=== PATIENT | female | born 1935 | race Caucasian/White ===

== ENCOUNTER 2019-07-31 04:03 | Observation (INO) | payer MEDICARE, BC ==
[~2019-07-31] VITALS: Ht 152.4 cm; Wt 56.0 kg
[~2019-07-31 04:03] MED LIST: CARDIZEM30 MG PO; CARDURA1 MG; CITRACAL + D E1 EACH PO; FLECAINIDE ACE100 MG PO; MULTIPLE VITAMI1 TA1 PO; VITAMIN C PO; XANAX1 MG PO; ZANTAC150 MG PO; [UNRECOGNIZED DRUG - OTHER] PO
[2019-07-31] MEDS ORDERED: ALBUTEROL SULF8.5 GM INH (04:14)
[2019-07-31] MEDS ORDERED: NORVASC2.5 MG PO (04:15)
[2019-07-31] MEDS ORDERED: LANOXIN125 MCG PO (04:15)
[2019-07-31] MEDS ORDERED: FLUTICASONE PRO16 GM NASAL (04:16)
[2019-07-31 04:31] LABS: BASOPHILS 0.2 % (0-2); EOSINOPHILS 1.6 % (0-7); HEMATOCRIT 39.2 % (36.0-48.0); HEMOGLOBIN 12.7 g/dL (12-16); IMMATURE GRANULOCYTES 0.2 % (0-5); LYMPHOCYTES 11.2 % (15-50); MCH 33.3 pg (26.0-34.0); MCHC 32.4 g/dL (31.0-37.0); MCV 102.9 fL (80.0-100.0); MEAN PLATELET VOLUME 10.3 fL (7.4-10.4); MONOCYTES 10.3 % (2-11); NEUTROPHILS 76.5 % (40-80); PLATELET COUNT 222 10x3/uL (130-400); RBC 3.81 10x6/uL (4.00-5.40); RDW 13.6 % (11.5-14.5); WBC 11.7 10x3/uL (4.8-10.8)
[2019-07-31 04:42] LABS: CALC OSMOLALITY 283 mosm/kg (275-300); CALCIUM 9.7 mg/dL (8.5-10.1); CARBON DIOXIDE 30.8 mmol/L (21.0-32.0); CHLORIDE - SERUM 104 mmol/L (98-107); CREATININE - SERUM 1.1 mg/dL (0.6-1.3); POTASSIUM - SERUM 4.3 mmol/L (3.5-5.1); SODIUM 141 mmol/L (136-145); UREA NITROGEN 21 mg/dL (7-18); eGFR NON AFRICAN AMERICAN 50 mL/min (90-120)
[2019-07-31 04:43] LABS: GLUCOSE 106 mg/dL (74-106)
[2019-07-31 04:44] LABS: APTT 27.3 SECONDS (22.8-39.4); INR 0.97 (0.85-1.17); PROTIME 12.4 SECONDS (11.6-15.0)
[2019-07-31 04:59] LABS: ALBUMIN 3.3 g/dL (3.4-5.0); ALKALINE PHOSPHATASE 106 U/L (46-116); ALT (SGPT) 26 U/L (10-68); BILIRUBIN - TOTAL 0.55 mg/dL (0.2-1.3); CKMB 1.4 U/L (0.0-3.6); CREATINE KINASE 46 UL (21-215); PROTEIN - SERUM 6.8 g/dL (6.4-8.2)
[2019-07-31 05:00] VITALS: BP 146/49
[2019-07-31 05:07] LABS: TROPONIN-I < 0.017 ng/mL (0.000-0.060)
[2019-07-31] MEDS ORDERED: ACETAMINOPHEN325 MG PO (05:56)
[2019-07-31] MEDS ORDERED: CARDIZEM30 MG PO (05:58)
[2019-07-31 06:17] VITALS: BP 165/42; BMI 24.1
--- NOTE | 2019-07-31 06:27 | NUR ---
RECIEVED REPORT FROM JILLIAN SZYMANSKI IN ER AT 0515. ARRIVED TO FLOOR ON STRETCHER. TRANSFERED SELF TO BED. ALERT AND ORIENTED X4. UP AD LATRICE TO B/R. IV TO LEFT AC SL.. ASSESSMENT COMPLETED. NPO AT THIS TIME D/T CARDIOLOGY CONSULT. DENIES ANY NEEDS AT THIS TIME.
--- NOTE | 2019-07-31 07:15 | NUR ---
RECEIVED PT IN BED EYES CLOSED RESP UNLABORED SKIN W/D NAD NOTED
[2019-07-31 08:06] VITALS: BP 162/65
[2019-07-31 11:40] VITALS: Ht 152.4 cm; Wt 56.0 kg
[2019-07-31 11:43] VITALS: BP 154/49
[2019-07-31 15:58] VITALS: BP 99/37
--- NOTE | 2019-07-31 19:09 | NUR ---
RECIEVED BEDSIDE SHIFT REPORT. ALET AND ORIENTED X4. UP AD LATRICE TO B/R. IV TO LEFT AC SL.. TELEMETRY IN PLACE. BEAVER AND MUST FACE HER WHEN SPEAKING. DENIES ANY NEEDS AT THIS TIME.
[2019-07-31 20:00] VITALS: BP 101/48
[2019-08-01] VITALS: BP 99/46
[2019-08-01 04:00] VITALS: BP 102/43
[2019-08-01 04:47] LABS: BASOPHILS 0.2 % (0-2); EOSINOPHILS 0.2 % (0-7); HEMATOCRIT 33.8 % (36.0-48.0); HEMOGLOBIN 10.9 g/dL (12-16); IMMATURE GRANULOCYTES 0.2 % (0-5); LYMPHOCYTES 11.6 % (15-50); MCHC 32.2 g/dL (31.0-37.0); MCV 102.4 fL (80.0-100.0); MEAN PLATELET VOLUME 10.5 fL (7.4-10.4); MONOCYTES 16.1 % (2-11); NEUTROPHILS 71.7 % (40-80); RDW 13.7 % (11.5-14.5); WBC 10.5 10x3/uL (4.8-10.8)
[2019-08-01 04:51] LABS: PLATELET COUNT 173 10x3/uL (130-400)
[2019-08-01 05:05] LABS: ANION GAP 10.1 mmol/L (8-16); CALCIUM 8.2 mg/dL (8.5-10.1); CARBON DIOXIDE 27.9 mmol/L (21.0-32.0)
[2019-08-01 05:06] LABS: CREATININE - SERUM 1.5 mg/dL (0.6-1.3)
--- NOTE | 2019-08-01 09:27 | NUR ---
TELEMETRY CAF. UP AMBULATING WITH PT ASSIST. GAIT STEADY. WILL CONT. PLAN OF CARE.
--- NOTE | 2019-08-01 10:09 | NUR ---
URINE SPECIMEN COLLECTED AND TAKEN TO LAB. WILL MONITOR.
[2019-08-01 10:12] VITALS: BP 99/36
[2019-08-01 10:19] LABS: APPEARANCE CLEAR (CLEAR); BILIRUBIN NEGATIVE (NEGATIVE); COLOR YELLOW (YELLOW); GLUCOSE NEGATIVE (NEGATIVE); KETONE NEGATIVE (NEGATIVE); NITRITE NEGATIVE (NEGATIVE); PROTEIN NEGATIVE (NEGATIVE); SPECIFIC GRAVITY 1.015 (1.005-1.020); UROBILINOGEN NORMAL (NORMAL)
--- NOTE | 2019-08-01 11:51 | NUR ---
IV AND TELEMETRY DCD. DC PLANS GIVEN. UNDERSTANDING VOICED. ESCORTED TO CAR BY W/C.
--- NOTE | 2019-08-02 09:06 | MORECARE ---
CASE MANAGEMENT DISCHARGE SUMMARY PATIENT: KENYON KENNEY UNIT: [id number] ADM DATE: 07/31/19 AGE: 83 : 34 SEX: F ROOM/BED: D.8995 AUTHOR: OMARI ROBERT PHYSICIAN: REFERRING PHYSICIAN: PORFIRIO NWE MD DATE OF SERVICE: 08/02/19 Discharge Plan Patient Name: [facility]ENYON KENNEY [facility] 1935 Planned Disposition: Home Anticipated Discharge Date: 08/01/19 Discharge Date: 08/01/2019 Expected LOS: 1 Initial Reviewer: [email or web address] Initial Review Date: 08/02/2019 Generated: 08/02/19 10:05 am Coverage Notice Reviewer: [email or web address] Yudith Stack Notice Issued Date-Time: 07/31/2019 14:37 Notice Type: Medicare Outpatient Observation Notice Notice Delivered To: Patient Relationship to Patient: Medical Doctor Md/Medical Director Name: Delivery Method: HAND - Hand Delivered Scarlett Days: Prior Verbal Notification: Recipient Understood Notice: Recipient Signature: Med Rec Note Co-signed by Attending: Coverage Notice Comment: Patient Name: KENYON KENNEY Page [phone] at 0906 All edits/amendments must be made on the electronic document DICTATION DATE: 08/02/19904 FAGOT MAKER: VANNA 08/02/19904 RPT#: [id number] DC DATE:08/01/19 STATUS: DIS IN [facility] [address] [place] [address] END OF REPORT
== END 2019-08-01 11:52 | disposition home or self-care (01) ==
LOC: D.ER 04:03 → OBSVTIME 04:42 → D.M2 04:42
PROVIDERS: Family Medicine; ADMIT Internal Medicine Nephrology; ATTEND Internal Medicine Nephrology
DX: R07.81 Pleurodynia (principal); R91.1 Solitary pulmonary nodule; N17.9 Acute kidney failure, unspecified; I10 Essential (primary) hypertension; K21.9 Gastro-esophageal reflux disease without esophagitis; I48.0 Paroxysmal atrial fibrillation; I34.0 Nonrheumatic mitral (valve) insufficiency

== ENCOUNTER 2019-09-01 10:51 | Outpatient (CLI) | payer MEDICARE, BC ==
[~2019-09-01] VITALS: Ht 152.4 cm; Wt 50.0 kg
--- NOTE | ~2019-09-01 | HEMODYNAMI ---
PATIENT:KENYON KENNEY MEDICAL RECORD: [id number] : 33 LOCATION:[facility] ADMISSION DATE: 09/01/19 Generatedon:09/01/201913:46 Patient name: KENYON KENNEY Patient #: [id number] SSN: [id number] : 1935 Date of study: 09/01/2019 Page: Of Hemodynamic Procedure Report Patient Data Patient Demographics Procedure consent was obtained First Name: KENYON Gender: Female Last Name: PABLITO : 1935 Middle Initial: A Age: 83 year(s) Patient #: [id number] Race: SSN: [id number] Additional ID: [id number] Contact details Address: [address] [place] [address] State: [place] City: [place] Zip code: [address] Past Medical History Allergies Allergen Reaction Date Comments Reported Other 10/11/2015 Betapace, Bystolic, Cephalexin, Coreg, allergy Metronidazole Other 09/01/2019 BETAPACE/BYSTOLIC/CEPHALEXIN/COREG/METRONIDAZOLE allergy Admission Admission Data Admission Date: 09/01/2019 Admission Time: 10:51 Arrival Date: 09/01/2019 Arrival Time: 0:00 Admit Source: Other Insurance Payor: Medicare [facility] #: [id number] Height (in.): 23.23 Height (cm.): 59 Lab Results Lab Result Date: 09/01/2019 Lab Result Time: 0:00 CBC Name Units Result Min Max Hematocrit % 39.4 -*(----)-- 42 54 Hemoglobin g/dl 12.8 -*(----)-- 13.5 17.5 Procedure Procedure Types Cath Procedure Diagnostic Procedure Cardioversion External Procedure Description Procedure Date Procedure Date: 09/01/2019 Procedure Start Time: 13:37 Procedure End Time: 13:44 Procedure Staff Name Function Jeronimo Jackson MD Performing Physician Ely Santillan RT Monitor Sebastian Parks RN Nurse Luz Caballero RT Scrub Elder Britton RT Scrub Lam Wahl GRINDING ROOM INSPECTOR Additional personnel Procedure Data Procedure Complications No complications Procedure Medications Medication Administration Route Dosage 0.9% NaCl I.V. 100 ml/hr Oxygen etCO2 Nasal cannula 5 l/min Refer to Anesthesia Notes for Sedation Medications Hemodynamics Rest HGB: 12.8 (g/dl) Heart Rate: 89 (bpm) Snapshots Pre Cath Intra NCS Post Cath Vital Signs Time Heart Resp SPO2 etCO2 NIBP (mmHg) Rhythm Pain Sedation Rate (ipm) (%) (mmHg) Status Level (bpm) 13:34:32 87 19 98 29.6 92/80(84) NSR 0 (11) 10(A) , No pain 13:36:00 90 17 100 25.1 163/84(116) NSR 0 (11) 10(A) , No pain 13:40:24 62 15 99 0 149/59(107) NSR 0 (11) 10(A) , No pain 13:41:34 64 13 100 0 138/55(103) NSR 0 (11) 10(A) , No pain Medications Time Medication Route Dose Verified Delivered Reason Notes Effective ness by by 13:34:58 0.9% NaCl I.V. 100 Sebastian Sebastian Per ml/hr Kasey Parks physician RN RN 13:35:09 Oxygen etCO2 5 Sebastian Sebastian for low Nasal l/min Kasey Parks 02 sats cannula RN RN 13:37:10 Refer to Sebastian Sebastian Anesthesia Kasey Parks Notes for RN RN Sedation Medications Procedure Log Time Note 13:17:03 Diagnostic Cath Status : Elective 13:18:20 Procedure Status Cardioversion. 13:18:25 Sebastian Parks RN sent for patient. Start room use. 13:18:28 Time tracking: Regular hours (M-F 7:00 - 5:00) 13:18:36 Plan of Care:Hemodynamics will remain stable., Cardiac rhythm will remain stable., Comfort level will be maintained., Respiratory function will remain adequate., Patient/ family verbilizes understanding of procedure., Procedure tolerated without complication., Recovers from procedure without complications.. 13:20:09 Patient allergic to Other allergyBETAPACE/BYSTOLIC/CEPHALEXIN/COREG/METRONIDAZOLE 13:22:19 Lab Result : Hematocrit 39.4 % 13:22:19 Lab Result : Hemoglobin 12.8 g/dl 13:22:37 Arrival Date: 09/01/2019 12:00:00 AM 13:22:40 Admit Source: Other 13:24:16 Insurance Payor : Medicare 13:24:39 Patient Height : 23.23 inches 13:29:51 Patient arrived from Pre/Post Procedure Room to CCL 1. Patient remains on bed/stretcher for procedure. 13:29:57 Signed procedure consent form obtained from patient. 13:29:58 Warm blankets applied, and gilma hugger turned on for patient comfort. 13:29:59 Correct patient and procedure confirmed by team. 13:30:01 ECG and BP/O2 sat monitors applied to patient. 13:33:22 Vital chart was started 13:33:23 Baseline sample Acquired. 13:33:31 Rhythm: atrial fibrillation 13:33:33 Full Disclosure recording started 13:33:34 - 13:33:40 H&P Date Dictated: 09/01/2019 H&P Addendum completed by physician on da y of procedure. (MUST COMPLETE FOR ALL OUTPATIENTS), New H&P dictated by physician.. 13:33:45 Pre-procedure instructions explained to patient. 13:33:46 Pre-op teaching completed and patient verbalized understanding. 13:33:49 Family in patients room. 13:34:05 Was the patient premedicated? Yes 13:34:07 Is patient on blood thinner?Yes 13:34:09 Quick Combo opened to sterile field. 13:34:13 ACC The patient was administered the following blood thiners within the last 24 hours: Rimmarelsandra 13:34:15 ----Pre-sedation anethsthesia assessment.---- 13:34:19 Previous problem with sedation/anesthesia? No ? 13:34:22 Snore? No 13:34:25 Sleep apnea? No 13:34:28 Deviated septum? No 13:34:29 Opens mouth fully? Yes 13:34:31 Sticks out tongue? Yes 13:34:34 Airway obstruction? No ? 13:34:40 Dentures? No ? 13:34:58 0.9% NaCl 100 ml/hr I.V. was administered by Sebastian Parks RN; Per physician; Verbal order read back and verified. 13:35:00 IV patent on arrival in right forearm with 0.9% NaCl at O. 13:35:09 Oxygen 5 l/min etCO2 Nasal cannula was administered by Sebastian Parks RN; for low 02 sats; Verbal order read back and verified. 13:35:10 Lab results completed and on chart. 13:35:13 Physician arrived 13:35:15 --------ALL STOP TIME OUT------ 13:35:16 Final Timeout: patient, procedure, and site verified with staff and physician. All members of the team are in agreement. 13:35:30 Physical assessment completed. ASA score P 3 - A patient with severe systemic disease as per Jeronimo Jackson MD. 13:35:44 Sedation plan: TIVA Medication:Propofol 13:37:10 Refer to Anesthesia Notes for Sedation Medications was administered by Sebastian Parks RN; ; Verbal order read back and verified. 13:37:47 Procedure started. 13:37:49 ------Cardioversion------ 13:37:54 Lam Wahl CRNA present and monitoring patient for TIVA. 13:37:58 Quick combo pads placed on patients chest and back. 13:38:03 Defibrillator synced and charged to 50 Joules. 13:38:05 Shock delivered. 13:38:12 Patient cardioverted to sinus rhythm . 13:38:26 Procedure ended.(Physican Out) 13:41:39 Post-procedure physical assessment completed. ASA score P 3 - A patient with severe systemic disease as per Jeronimo Jackson MD. 13:41:44 Post procedure rhythm: sinus rhythm 13:41:49 Post procedure instruction explained to patient.Patient verbalizes understanding. 13:41:51 Patient needs reinforcement of post procedure teaching. 13:42:02 Procedure and supply charges have been captured, reviewed, submitted an d are correct. 13:44:18 Procedure Complication : No complications 13:44:22 Vital chart was stopped 13:44:29 Operative report dictated upon procedure completion. 13:44:30 See physician's report for complete and final results. 13:44:32 Report given to Pre/Post Procedure Room. 13:44:36 Patient transfered to Pre/Post Procedure Room with Stretcher. 13:44:39 Procedure ended. 13:44:39 Full Disclosure recording stopped 13:44:42 End room use (Document Last) 13:44:42 End room use (Document Last) Device Usage Item Manufacture Quantity Catalog Hospital Part Current Minimal Lot# / Name Number Charge Number Stock Stock Kadei va# Code [employer] [id number] 5 Combo Signature Audit [place] Stage Time Signature Unsigned Intra-Procedure 09/01/2019 Ely 1:45:13 PM Jacque RT(R) (CV) Intra-Procedure 09/01/2019 Sebastian 1:45:37 PM Kasey SZYMANSKI Intra-Procedure 09/01/2019 Jeronimo Jackson MD 1:46:21 PM [facility] [address] [place] [address]
[~2019-09-01 10:51] MED LIST changes: +ACETAMINOPHEN325 MG PO; +ALBUTEROL SULF8.5 GM INH; +FLUTICASONE PRO16 GM NASAL; +LANOXIN125 MCG PO; +NORVASC2.5 MG PO
[2019-09-01] MEDS ORDERED: XARELTO20 MG PO (11:10)
[2019-09-01] MEDS ORDERED: LASIX20 MG PO (11:11)
--- NOTE | 2019-09-01 12:12 | NUR ---
1115 PT REC TO ROOM, EKG TO ASSESS HEART RHYTHM DONE. REGULAR RHYTHM W P WAVES, EKG INTERP IS NSR, RATE 87. 1118 KODY KINGSTON RN SENT MESSAGE TO DR ROBERT RE HEART RHYTHM, HE SENT MESSAGE THAT HE WILL COME ASSESS PT PRIOR TO HIS CASES STARTING THIS AFTERNOON. PT INFORMED. FRIEND AT BEDSIDE.
--- NOTE | 2019-09-01 12:46 | NUR ---
1235 DR ROBERT HERE, REQ SECOND EKG. DONE. DETERMINED RHYTHM IS 2:1 FLUTTER. WILL PREP PT FOR CARDIOVERSION.
[2019-09-01 13:20] VITALS: BP 155/78; Ht 152.4 cm; Wt 50.0 kg
[2019-09-01 13:20] LABS: BASOPHILS 0.3 % (0-2); EOSINOPHILS 1.9 % (0-7); HEMATOCRIT 39.4 % (36.0-48.0); HEMOGLOBIN 12.8 g/dL (12-16); IMMATURE GRANULOCYTES 0.1 % (0-5); LYMPHOCYTES 22.4 % (15-50); MCH 32.2 pg (26.0-34.0); MCHC 32.5 g/dL (31.0-37.0); MONOCYTES 8.9 % (2-11); NEUTROPHILS 66.4 % (40-80); PLATELET COUNT 248 10x3/uL (130-400); RBC 3.98 10x6/uL (4.00-5.40); RDW 13.1 % (11.5-14.5); WBC 6.8 10x3/uL (4.8-10.8)
[2019-09-01 13:32] LABS: ANION GAP 12.6 mmol/L (8-16); CALCIUM 9.6 mg/dL (8.5-10.1); CARBON DIOXIDE 30.5 mmol/L (21.0-32.0); POTASSIUM - SERUM 4.1 mmol/L (3.5-5.1)
--- NOTE | 2019-09-01 13:52 | NUR ---
REC TO ROOM VIA STRETCHER. MONITORING INITIATED. ALERT, ORIENTED.POST PROCEDURE EKG NSR, RATE 67. KYLE SIPS OF WATER, DECLINES FOOD.
[2019-09-01 13:58] LABS: INR 1.55 (0.85-1.17)
--- NOTE | 2019-09-01 14:16 | NUR ---
ALERT, ORIENTED, NO C/O PAIN, FRIEND AT BEDSIDE VISITING. VSS. HR 68, BP 151/64.
--- NOTE | 2019-09-01 14:30 | NUR ---
NO COMPLAINTS. NSR, 71. NIBP 151/64. DENIES NEEDS.
--- NOTE | 2019-09-01 14:45 | NUR ---
MONITORING DISCONTINUED, IV DC WITH TIP INTACT. PT DRESSED INDEPENDENTLY. DC INSTRUCTIONS AND APPT REVIEWED. PT TO PRIVATE CAR DRIVEN BY FRIEND VIA WHEELCHAIR.
== END 2019-09-01 14:45 | disposition home or self-care (01) ==
LOC: D.CATH 10:51
PROVIDERS: ATTEND Internal Medicine Cardiovascular Disease
DX: I48.92 Unspecified atrial flutter (principal); R06.00 Dyspnea, unspecified; I48.0 Paroxysmal atrial fibrillation; I10 Essential (primary) hypertension; I34.0 Nonrheumatic mitral (valve) insufficiency

== ENCOUNTER 2019-09-11 00:49 | Observation (INO) | payer MEDICARE, BC ==
[~2019-09-11] VITALS: Ht 152.4 cm; Wt 50.5 kg
--- NOTE | ~2019-09-11 | CN ---
PATIENT NAME:KENYON RANDLE MEDICAL RECORD: [id number] : 33 LOCATION:. D.2120 ADMIT DATE: 09/11/19 ACCOUNT: [id number] CONSULTING PHYSICIAN: FELIPE ADHIKARI MD REFERRING PHYSICIAN: PORFIRIO NEW MD DATE OF CONSULTATION: 09/11/2019 CARDIOLOGY CONSULTATION ADMITTING DIAGNOSES: 1. Chest pain, atypical. 2. Atrial fibrillation, chronic. 3. Tachycardia. 4. Palpitations. 5. Chronic obstructive pulmonary disease. 6. Gastroesophageal reflux disease. 7. Valvular heart disease, mitral regurgitation. HISTORY OF PRESENT ILLNESS: Mrs. Randle presents with chest pain and palpitations. She has chronic atrial fibrillation. DC cardioversion was attempted approximately 2 weeks ago; however, this failed. She is back in atrial fibrillation. She has longstanding atrial fibrillation, has been on flecainide for years. She felt palpitations. Her current rate control medications are digoxin 0.125 every day with normal renal function as well as Cardizem 30 mg b.i.d., her systolic blood pressure is in the 130-140 range. Her heart rates in the 110 range with atrial fibrillation, atrial flutter. PHYSICAL EXAMINATION: CONSTITUTIONAL/GENERAL APPEARANCE: Well nourished, well developed, appears stated age. EYES: Lids and conjunctivae noninjected. No discharge. No pallor. ENT: Lips within normal limit. No cyanosis. No pallor. NECK: Carotid arteries, bilateral normal upstroke. No bruits. No thrills. No jugular venous pressure or distention. CERVICAL LYMPH NODES: Nontender. Nonenlarged. THYROID: Not enlarged. No nodules. CARDIOVASCULAR: Irregularly irregular, tachycardic with atrial fibrillation. RESPIRATORY: Respiratory effort, unlabored. Normal curvature. No thoracic deformity. No chest wall tenderness. Percussion, resonant. Auscultation, clear. No wheezes, no rales, no rhonchi. ABDOMEN: Soft, nondistended, nontender. No abdominal pain, no vomiting and normal appetite. MUSCULOSKELETAL: No joint tenderness, normal gait, normal tone. SKIN: Warm and dry. OVERALL IMPRESSION: Atrial fibrillation. At this time, would center medical management on rate control. She is on Norvasc and diltiazem. We will discontinue the Norvasc, increase the diltiazem to 180 mg every day, increase the digoxin to 0.25 mg every day. Hopefully, this will give better rate control and symptomatology control. She did undergo cardiac catheterization in the past, this was normal. Her chest pain is nonischemic in nature. TRANSINT:[id number] Voice Confirmation ID: [id number] DOCUMENT ID: [id number] CONSULT REPORT [id number] KENYON RANDLE JEFFREY MD CC: [id number] DICTATION DATE: 09/11/19 122 DONKEY ENGINE FIRER/FIREMAN: 09/11/19 1250 ADM IN [place] [id number] [place] [id number]
--- NOTE | ~2019-09-11 | EC ---
PATIENT:KENYON KENNEY DATE OF SERVICE: 09/11/19 SEX: F MEDICAL RECORD: [id number] DATE OF : [birth year] LOCATION:D.M2 D.212 AGE OF PATIENT: 84 ADMISSION DATE: 09/11/19 REFERRING PHYSICIAN: INTERPRETING PHYSICIAN: FELIPE PRYOR MD ECHOCARDIOGRAM REPORT ECHO CHARGES 4 ECHO COMPLETE Date: 09/11/19 CLINICAL DIAGNOSIS: ATYPICAL CP; AFIB; HX: MVP ECHOCARDIOGRAPHIC MEASUREMENTS (adult normal given) AC root (d.<3.7cm) 2.1 cm LV Septum d (<1.2 cm> 1.2 cm Valve Excursion 1.5 cm LV Septum (systole) 1.6 cm Left Atria (s.<4.0cm> 3.5 cm LVPW d(<1.2cm) 1.0 cm RV (d.<2.3cm) 2.3 cm LVPW (sytole) 1.4 cm LV diastole(<5.6CM) 3.2 cm MV E-F(>70mm/sec) cm LV systole 2.1 cm LVOT Diameter 2.0 cm MV exc.(>10mm) cm Est.ejection fraction (50-75%) % DOPPLER: LVIT cm/sec A 38 cm/sec E 112 cm/sec LA cm/sec RVSP 22.5 mmHg LVOT 95 cm/sec AOP1/2T m/s Asc. Ao 157 cm/sec RVOT 69 cm/sec RA cm/sec PA 86 cm/sec AV Gradient Peak 9.8 mmHg AV Mean 5.1 mmHg AV Area 2.1 cm MV Gradient Peak 8.6 mmHg MV Mean 3.1 mmHg MV Area cm COMMENTS: Home Health Clinician: Gadiel MARCUS Conditioner Tender: 1 Dr. Pryor TAPE# PACS Pericardial Effusion Y DATE OF SERVICE: 09/11/2019 FINDINGS: 1. Left ventricular chamber size is within normal limits. Left ventricular systolic function is normal. Overall ejection fraction estimated at 55%. 2. Left atrium, right atrium, and right ventricle chamber sizes are within normal limits. 3. Valvular structures have normal structure and motion. 4. Doppler interrogation reveals no significant valvular insufficiency or stenosis. ECHOCARDIOGRAM REPORT [id number] KENYON KENNEY 5. No evidence of pericardial effusion or left ventricular thrombus. TRANSINT:[id number] Voice Confirmation ID: [id number] DOCUMENT ID: [id number] FELIPE PRYOR MD CC: [id number] DICTATION DATE: 09/12/19 1224 HOSPITAL HOUSEKEEPER: 09/12/19 1532 DIS IN 09/12/19 [place] [id number] [place] [id number]
[~2019-09-11 00:49] MED LIST changes: +LASIX20 MG PO; +XARELTO20 MG PO
[2019-09-11] MEDS ORDERED: LINZESS72 MCG PO (00:58)
[2019-09-11 01:18] LABS: BASOPHILS 0.2 % (0-2); EOSINOPHILS 1.8 % (0-7); HEMOGLOBIN 11.9 g/dL (12-16); IMMATURE GRANULOCYTES 0.3 % (0-5); LYMPHOCYTES 10.8 % (15-50); MCH 31.6 pg (26.0-34.0); MCHC 32.2 g/dL (31.0-37.0); MCV 98.1 fL (80.0-100.0); MEAN PLATELET VOLUME 9.7 fL (7.4-10.4); NEUTROPHILS 75.9 % (40-80); PLATELET COUNT 242 10x3/uL (130-400); RBC 3.77 10x6/uL (4.00-5.40); RDW 13.1 % (11.5-14.5); WBC 11.3 10x3/uL (4.8-10.8)
[2019-09-11 01:28] LABS: CALC OSMOLALITY 285 mosm/kg (275-300); CALCIUM 9.1 mg/dL (8.5-10.1); CARBON DIOXIDE 29.6 mmol/L (21.0-32.0); CHLORIDE - SERUM 102 mmol/L (98-107); GLUCOSE 130 mg/dL (74-106); POTASSIUM - SERUM 3.9 mmol/L (3.5-5.1); SODIUM 140 mmol/L (136-145); UREA NITROGEN 26 mg/dL (7-18); eGFR NON AFRICAN AMERICAN 56 mL/min (90-120)
[2019-09-11 01:35] LABS: APTT 37.6 SECONDS (22.8-39.4); INR 1.4 (0.85-1.17); PROTIME 16.6 SECONDS (11.6-15.0)
[2019-09-11 01:36] LABS: D-DIMER-QUANTITATIVE 0.66 ug/mLFEU (0.20-0.54)
[2019-09-11 01:42] LABS: ALBUMIN 3.1 g/dL (3.4-5.0); ALKALINE PHOSPHATASE 118 U/L (46-116); ALT (SGPT) 19 U/L (10-68); BILIRUBIN - TOTAL 0.34 mg/dL (0.2-1.3); CKMB 1.8 U/L (0.0-3.6); CREATINE KINASE 40 UL (21-215); DIGOXIN 1.56 ng/mL (0.90-2.00); PRO BNP 1924 pg/mL (0-450); PROTEIN - SERUM 6.7 g/dL (6.4-8.2); TROPONIN-I < 0.017 ng/mL (0.000-0.060)
[2019-09-11 03:57] VITALS: BP 122/54; BMI 21.7
--- NOTE | 2019-09-11 04:45 | NUR ---
ADMIT TO ROOM 2120 @ 0336 FROM ER VIA STRETCHER. ALERT/ORIENTED/MILD PAIUTE-SHOSHONE. TELEMETRY INITIATED. CAF/90 PER MONITORS. ADMISSION HISTORY AND ASSESSMENT COMPLETED. HOME MEDS REVIEWED AND UPDATED. PLAN OF CARE INITIATED.
[2019-09-11] MEDS ORDERED: XANAX0.5 MG PO (05:07)
[2019-09-11] MEDS ORDERED: OMEPRAZOLE20 M1 PO (05:09)
--- NOTE | 2019-09-11 06:40 | NUR ---
PT RESTING IN BED. HAS BEEN ASSISTED UP X 1 TO VOID/HAVE LOOSE BM IN BATHROOM. IVF NS @ 75ML/HR INFUSING. STILL REPORTS PAIN TO LEFT CHEST WITH INSPIRATION/EXPIRATION. CPOC.
--- NOTE | 2019-09-11 07:10 | NUR ---
REPORT RECEVED FROM TRANSCRIPTION AND PATIENT CARE ASSUMED. PATIENT LAYING IN BED ON BACK AWAKE, ALERT AND ORIENTED X 2. PATIENT DENIES ANY NEEDS OR PAIN. PATIENT IS NPO AWAITING CARDIOLOGY CONSULT. WILL CONTINUE WITH PLAN OF CARE. SR UPX 2 BED IN LOW POSITION AND CALL LIGHT IN REACH.
[2019-09-11 07:38] LABS: CREATINE KINASE 27 UL (21-215)
[2019-09-11 07:39] LABS: TROPONIN-I < 0.017 ng/mL (0.000-0.060)
[2019-09-11 08:06] VITALS: BP 119/68
[2019-09-11 11:02] VITALS: Ht 152.4 cm; Wt 50.5 kg
--- NOTE | 2019-09-11 11:10 | NUR ---
PATIENT IS STABLE AND VSS, PATIENT DENIES ANY NEEDS OR PAIN. PATIENT TO CT VIA WC AND ACCOMPANIED BY CT PERSONNEL.
[2019-09-11 11:33] VITALS: BP 147/64
[2019-09-11 14:20] LABS: CKMB 0.7 U/L (0.0-3.6); CREATINE KINASE 25 UL (21-215); TROPONIN-I < 0.017 ng/mL (0.000-0.060)
--- NOTE | 2019-09-11 15:28 | NUR ---
PATIENT UP TO BR. PATIENT VOIDED AND URINE SPECIMEN COLLECTED. PATIENT BACK TO BED. PATIENT IS STABLE AND VSS. PATIENT DENIES ANY NEEDS OR PAIN. WILL CONTINUE TO MONITOR. SR UP X 2 BED IN LOW POSITION AND CALL LIGHT IN REACH.
[2019-09-11 15:31] VITALS: BP 127/56
[2019-09-11 16:02] LABS: APPEARANCE CLEAR (CLEAR); BILIRUBIN NEGATIVE (NEGATIVE); COLOR YELLOW (YELLOW); GLUCOSE NEGATIVE (NEGATIVE); KETONE NEGATIVE (NEGATIVE); NITRITE NEGATIVE (NEGATIVE); PROTEIN NEGATIVE (NEGATIVE); UROBILINOGEN NORMAL (NORMAL)
--- NOTE | 2019-09-11 18:40 | NUR ---
PATIENT RESTING COMFORTABLY IN BED VISITNG WITH SON. PATIENT DENIES ANY NEEDS OR PAIN. PATIENT IS STABLE AND VSS. WILL CONTINUE TO MONITOR. SR UP X 2 BED IN LOW POSITION AND CALL LIGHT IN REACH.
--- NOTE | 2019-09-11 20:22 | NUR ---
REPORT AND INITIAL ROUNDS COMPLETED. PT RESTING IN BED. ALERT/ORIENTED. IV TO RIGHT A/C WITH NS @ 75ML/HR INFUSING. CAF PER TELEMETRY. REPORTS NO PAIN TO CHEST AREA AT THIS TIME. CALL LIGHT IN REACH. VERY PLEASANT.
[2019-09-11 20:30] VITALS: BP 125/58
--- NOTE | 2019-09-11 21:41 | NUR ---
BEDTIME MEDS GIVEN. REQUESTED XANAX FOR SLEEP PROVIDED. ASSISTED UP TO BATHROOM BATHROOM. PT AMBULATES STEADILY WITH STAFF PRESENT IN ROOM. PT PERFORMED ORAL CARE. BACK TO BED. CALL LIGHT IN REACH.
[2019-09-12 00:26] VITALS: BP 117/54
--- NOTE | 2019-09-12 02:20 | NUR ---
PT RESTING WITH EYES CLOSED. RESPS EVEN/NONLABORED. NO REPORTS OF DISCOMFORT. FALL PRECAUTIONS IN PLACE. CPOC.
--- NOTE | 2019-09-12 07:20 | NUR ---
RECIEVE REPORT. ALERT AND ORIENTED X4. UP AMBULATING IN ROOM. ANVIK. DENIES ANY NEEDS. CONTINUE PLAN OF CARE AND SAFETY PRECAUTIONS.
[2019-09-12 10:28] VITALS: BP 118/53
[2019-09-12 10:47] LABS: HEMATOCRIT 33.2 % (36.0-48.0); HEMOGLOBIN 10.7 g/dL (12-16); MCH 31.6 pg (26.0-34.0); MCHC 32.2 g/dL (31.0-37.0); MCV 97.9 fL (80.0-100.0); MEAN PLATELET VOLUME 9.9 fL (7.4-10.4); PLATELET COUNT 224 10x3/uL (130-400); RBC 3.39 10x6/uL (4.00-5.40); RDW 13.5 % (11.5-14.5); WBC 11.6 10x3/uL (4.8-10.8)
[2019-09-12 11:15] LABS: BASOPHILS 0.1 % (0-2); EOSINOPHILS 0.2 % (0-7); IMMATURE GRANULOCYTES 0.3 % (0-5); LYMPHOCYTES 9.9 % (15-50); MONOCYTES 12.5 % (2-11)
[2019-09-12 11:26] LABS: ANION GAP 11.8 mmol/L (8-16); CALCIUM 8.2 mg/dL (8.5-10.1); CREATININE - SERUM 1.1 mg/dL (0.6-1.3); POTASSIUM - SERUM 3.8 mmol/L (3.5-5.1)
[2019-09-12] MEDS ORDERED: Lanoxin PO (11:48)
[2019-09-12] MEDS ORDERED: LANOXIN125 MCG PO (11:49)
[2019-09-12] MEDS ORDERED: CARDIZEM CD180 MG PO (11:50)
--- NOTE | 2019-09-12 12:20 | NUR ---
PRESCRIPTION FOR DIGOXIN 0.25 MG DID NOT E SCRIBE. CALLED IN TO [facility], SPOKE WITH KATHLEEN, PHARMACIST.
--- NOTE | 2019-09-12 13:41 | NUR ---
ALERT AND ORIENTED X4. SITTING UP IN BED. DC RT AC IV TIP INTACT. DISCHARGE INSTRUCTIONS GIVEN VERBALLY AND WRITTEN. DISCHARGE PAPERS SIGNED ON CHART. ESCORT TO RIDE VIA WHEELCHAIR. REMAINS FREE FROM INJURY.
== END 2019-09-12 13:48 | disposition home or self-care (01) ==
LOC: D.ER 00:49 → OBSVTIME 02:19 → D.M2 02:19
PROVIDERS: Emergency Medicine; ADMIT Internal Medicine Nephrology; ATTEND Internal Medicine Nephrology
DX: R07.9 Chest pain, unspecified (principal); I31.3 Pericardial effusion (noninflammatory); N17.9 Acute kidney failure, unspecified; I10 Essential (primary) hypertension; K21.9 Gastro-esophageal reflux disease without esophagitis; I48.0 Paroxysmal atrial fibrillation; F41.9 Anxiety disorder, unspecified; I34.0 Nonrheumatic mitral (valve) insufficiency; J44.9 Chronic obstructive pulmonary disease, unspecified; R00.2 Palpitations